=== PATIENT | male | born 1955 | race Caucasian/White ===

== ENCOUNTER → 2024-09-08 13:44 | Outpatient (REF) | payer MEDICARE, OTHER, SELFPAY | LOC: MRI 13:44 | PROVIDERS: ATTENDING PHYSICIAN Orthopaedic Surgery; FAMILY PHYSICIAN Family Medicine | DX: M54.16 Radiculopathy, lumbar region (principal) | CPT/HCPCS: 72148; 76014; 76015 ==

== ENCOUNTER → 2024-11-20 08:20 | Outpatient (REF) | payer MEDICARE, OTHER, SELFPAY | LOC: HWRCS 08:20 | PROVIDERS: ATTENDING PHYSICIAN Internal Medicine Cardiovascular Disease; FAMILY PHYSICIAN Family Medicine | DX: E78.00 Pure hypercholesterolemia, unspecified (principal); I25.2 Old myocardial infarction; Z95.5 Presence of coronary angioplasty implant and graft; I77.810 Thoracic aortic ectasia | CPT/HCPCS: 93306 ==